=== PATIENT | female | born 1965 | race Caucasian/White ===

== ENCOUNTER → 2019-01-17 09:54 | Outpatient (CLI) | payer MEDICARE ==
--- NOTE | 2019-01-24 11:18 | ST ---
PATIENT:SARAH LEACH MEDICAL RECORD: [id number] SEX: F LOCATION:[facility] ORDER #: ADMISSION DATE: 01/17/19 AGE OF PATIENT: 53 REFERRING PHYSICIAN: INTERPRETING PHYSICIAN: DANYELL RAE MD DATE OF SERVICE: 01/17/2019 PROCEDURE: Nuclear stress test. INDICATION: Chest pain, shortness of breath. Family history of coronary artery disease. She was exercised on standard Jai protocol for 8 minutes and 45 seconds achieving greater than 85% max target heart rate response with 33 mCi of sestamibi injected at peak stress. Rest images were done previously with 11 mCi. FINDINGS: Gated SPECT reveals preserved ejection fraction at 81% with good wall motion and thickening and brightening throughout all segments. SPECT imaging Cardiolite was used as myocardial fusion agent. There is homogeneous uptake throughout all segments at rest and stress with no evidence of inducible ischemia or previous infarction. OVERALL IMPRESSION: 1. This is a normal nuclear stress test with no evidence of inducible ischemia or previous infarction. 2. Gated SPECT reveals a preserved ejection fraction at 81%. In this patient with ongoing symptomatology, the current scan does not suggest the presence of hemodynamically significant coronary artery disease. Evaluate noncardiac etiology of chest pain. TRANSINT:[id number] Voice Confirmation ID: [id number] DOCUMENT ID: [id number] DANYELL RAE MD at 1118 CC: [id number] DICTATION DATE: 01/17/19 1629 [facility] AND GLUER: 01/18/19 0500 DEP CLI 01/17/19 [place] [id number]
== END | disposition home or self-care (01) ==
LOC: D.HCCARDIO 09:30
DX: R07.9 Chest pain, unspecified (principal)

== ENCOUNTER 2021-04-24 21:19 | Emergency (ER) | payer MEDICARE ==
[~2021-04-24] VITALS: Ht 157.5 cm; Wt 63.6 kg
[2021-04-24 21:27] VITALS: Ht 157.5 cm; Wt 63.6 kg
[2021-04-24] MEDS ORDERED: SYMBICORT 16010.2 GM INH (21:30)
[2021-04-24] MEDS ORDERED: BUPROPION HCL150 M1 PO (21:30)
[2021-04-24 22:33] LABS: BASOPHILS 1.1 % (0-2); EOSINOPHILS 6.4 % (0-7); HEMATOCRIT 38.3 % (36.0-48.0); HEMOGLOBIN 12.3 g/dL (12-16); MCH 23.1 pg (26.0-34.0); MCHC 32.1 g/dL (31.0-37.0); MCV 71.8 fL (80.0-100.0); MEAN PLATELET VOLUME 6.8 fL (7.4-10.4); MONOCYTES 8.3 % (2-11); NEUTROPHILS 58.2 % (40-80); PLATELET COUNT 321 10x3/uL (130-400); RBC 5.33 10x6/uL (4.00-5.40); RDW 15.7 % (11.5-14.5)
[2021-04-24 22:51] LABS: ANION GAP 15.4 mmol/L (8-16); CALCIUM 9.1 mg/dL (8.5-10.1); CARBON DIOXIDE 27.1 mmol/L (21.0-32.0); CREATININE - SERUM 1.2 mg/dL (0.6-1.3); POTASSIUM - SERUM 3.5 mmol/L (3.5-5.1)
[2021-04-24 23:04] LABS: ALBUMIN 4.2 g/dL (3.4-5.0); BILIRUBIN - TOTAL 0.56 mg/dL (0.2-1.3); PROTEIN - SERUM 7.4 g/dL (6.4-8.2)
[2021-04-24 23:47] LABS: AMYLASE - SERUM 73 U/L (25-115); LIPASE 183 U/L (73-393)
[2021-04-25 00:43] LABS: BILIRUBIN NEGATIVE (NEGATIVE); KETONE NEGATIVE (NEGATIVE); NITRITE NEGATIVE (NEGATIVE); UROBILINOGEN NORMAL mg/dL (< 2)
[2021-04-25 01:39] LABS: INR < 0.90 (0.85-1.17); PROTIME 9.9 SECONDS (11.6-15.0)
[2021-04-25 02:15] VITALS: BP 110/71
[2021-04-25 03:04] LABS: APTT 25.6 SECONDS (22.8-39.4)
== END 2021-04-25 02:15 | disposition home or self-care (01) ==
LOC: D.ER 21:19
PROVIDERS: Family Medicine
DX: R10.84 Generalized abdominal pain (principal); G89.29 Other chronic pain; J45.909 Unspecified asthma, uncomplicated